=== PATIENT | female | born 1990 | race Caucasian/White ===

== ENCOUNTER → 2019-05-18 | Outpatient (CLI) | payer OTHER | LOC: M LAB 09:07 | PROVIDERS: ATTEND Registered Nurse Maternal Newborn | DX: O36.0131 Maternal care for anti-D [Rh] antibodies, third trimester, fetus 1 (principal); Z3A.33 33 weeks gestation of pregnancy ==

== ENCOUNTER 2019-06-29 20:57 | Inpatient (IN) | payer OTHER ==
[2019-06-29] VITALS (11 sets, daily range): BP systolic 95–133; BP diastolic 60–88
[~2019-06-29] VITALS: Ht 165.1 cm; Wt 84.1 kg
[2019-06-29] MEDS ORDERED: LACTATED RINGER'S 1000 ML IV STA (21:53)
[2019-06-29] MEDS ORDERED: LR 1,000 ML IV SCH (21:53)
[2019-06-29] MEDS ORDERED: FENTANYL 2MCG/ML ROPIVACAINE 0.2% IN 0.9% NACL 100ML IVBAG As Ordered ONE (22:28)
[2019-06-29] MEDS ORDERED: ONDANSETRON 4MG/2ML VIAL IV ONE (22:30)
[2019-06-29 22:33] LABS: HEMATOCRIT 40.9 % (36.0-47.0); HEMOGLOBIN 14.5 g/dl (12.0-15.5); MEAN CORPUSCULAR HEMOGLOBIN 32.7 pg (27.0-33.0); MEAN CORPUSCULAR HGB CONC 35.5 g/dl (32.0-36.5); MEAN CORPUSCULAR VOLUME 92.1 fl (80.0-96.0); PLATELET COUNT, AUTOMATED 160 10^3/uL (150-450); RED BLOOD COUNT 4.44 10^6/uL (4.00-5.40); WHITE BLOOD COUNT 8.7 10^3/uL (4.0-10.0)
[2019-06-29] MEDS ORDERED: NALOXONE INJ 0.4MG/1ML VIAL (J2310 PER 1MG) IV PRN (22:47)
[2019-06-29] MEDS ORDERED: FENTANYL/ROPIVACAINE/NACL BAG 100 ML EPIDURAL SCH (22:47)
[2019-06-29] MEDS ORDERED: EPIDURAL/PCA KEYS XX PRN (22:47)
[2019-06-29] MEDS ORDERED: REFRIGERATOR IV KEYS XX PRN (22:47)
[2019-06-29] MEDS ORDERED: ONDANSETRON 4MG/2ML VIAL IV PRN (22:47)
[2019-06-29] MEDS ORDERED: ePHEDrine SULFATE 25 MG/5 ML(5MG/ML) SYRINGE IV PRN (22:47)
[2019-06-29] MEDS ORDERED: diphenhydrAMINE 50MG/ML VIAL (J1200) IV PRN (22:47)
[2019-06-29] MEDS ORDERED: EPIDURAL COMMENT XX SCH (22:47)
[2019-06-29] MEDS ORDERED: LACTATED RINGER'S 1000 ML IV PRN (22:47)
[2019-06-30] VITALS (21 sets, daily range): BP systolic 94–136; BP diastolic 54–98
[2019-06-30] MEDS ORDERED: OXYTOCIN INJ 10 UNITS/ML VIAL (J2590) As Ordered ONE (02:35)
[2019-06-30 03:30] LABS: CORD GAS ABE A -2.8; CORD GAS ABE V -2.8; CORD GAS HCO3 A 23.9 MEQ/L; CORD GAS HCO3 V 20.8 MEQ/L; CORD GAS O2 SAT A 47.1 %; CORD GAS O2 SAT V 82.3 %; CORD GAS PCO2 A 48.5 mmHg; CORD GAS PCO2 V 33.2 mmHg; CORD GAS PH A 7.31 UNITS; CORD GAS PH V 7.414 UNITS; CORD GAS PO2 A 20.7 mmHg; CORD GAS SBC A 20.9 MEQ/L; CORD GAS SBC V 21.7 MEQ/L; CORD GAS TCO2 A 25.4 MEQ/L; CORD GAS TCO2 V 21.8 MEQ/L
[2019-06-30] MEDS ORDERED: OXYTOCIN DRIP 30 UNITS in IV 1 EA IV SCH ×3 (03:37)
[2019-06-30] MEDS ORDERED: MEASLES,MUMPS,RUBELLA VACCINE INJ (MMR-II) (90707) SC SCH (03:45)
[2019-06-30] MEDS ORDERED: DOCUSATE SODIUM 100 MG CAP PO PRN (03:45)
[2019-06-30] MEDS ORDERED: OXYTOCIN INJ 10 UNITS/ML VIAL (J2590) IV ONE (03:45)
[2019-06-30] MEDS ORDERED: DIBUCAINE 1% OINTMENT 30GM TOP PRN (03:45)
[2019-06-30] MEDS ORDERED: ACETAMINOPHEN 500 MG TAB PO PRN (03:45)
[2019-06-30] MEDS ORDERED: ANUSOL HC CREAM 30GM TOP PRN (03:45)
[2019-06-30] MEDS ORDERED: RHOGAM 300 MCG (1500 IU) INJ (J2790) IM SCH (03:45)
[2019-06-30] MEDS ORDERED: METHYLERGONOVINE MALEATE 0.2 MG TAB PO PRN (03:45)
[2019-06-30] MEDS ORDERED: IBUPROFEN 600 MG TAB PO PRN (03:45)
[2019-06-30] MEDS ORDERED: MOM 30ML SUSPENSION UDC PO PRN (03:45)
[2019-06-30] MEDS ORDERED: ACETAMINOPHEN TAB 650MG DOSE (2X325MG) PO PRN (03:45)
[2019-06-30] MEDS: PRENATAL VITAMINS CHEWABLE TABLET PO SCH (07:50)
[2019-06-30] MEDS: LR 1,000 ML IV SCH ×2 (08:37→11:37)
--- NOTE | 2019-06-30 09:07 | HPE ---
DATE OF ADMISSION: 06/29/2019 28-year-old 2, para 1, last menstrual period (LMP) 09/26/2018, estimated date of confinement (EDC) 07/03/2019 at 39 and 4 weeks of gestation in active labor at term. PAST HISTORY: June 2017 - 40 weeks spontaneous vaginal delivery female 7 pounds 1 ounce, uneventful. Induction of labor etiology unknown. RISK FACTORS: She is Rh negative with antibody isoimmunization anti E2 and anti C of 10. LABS: O negative, HIV negative, hep negative, RPR negative, rubella immune. Varicella immune. Pap normal. Urine negative. Gonorrhea and chlamydia neg. 1-hour glucose 105 and GBS is negative. PHYSICAL EXAMINATION: On examination distressed. Symphysis fundus height is 39, vertex occiput anterior (OA), ballotable 3 cm, moderate intensity. Category 1 strip. Blood pressure 133/88, respirations 20, pulse 98 and temperature 98.7. Urine is not available. The rest examination unremarkable. Normocephalic, atraumatic. Neck full range of motion. Pupils equal and reactive to light. Distal pulses symmetric. No evidence of deep venous thrombosis (DVT), pulmonary embolus (PE) or superficial phlebitis. Chest is clear bilaterally bases. No wheezes or rhonchi. No costovertebral angle (CVA) tenderness. Abdomen is nontender. Four-quadrant bowel sounds are noted. Appropriate symphysis fundus height. She has no rashes, lesions or pruritus. No arthralgia, myalgia. No complaint joint pain. No complaint cough, wheeze, shortness of breath or dyspnea on exertion. No bruising. No bleeding. Neuro complete. No incontinency or frequency. She is presently vomiting because of labor. No endocrine or heat or cold sensitivities. She has no history of abnormal Pap smears socially transmitted disease (STDs). Past medical unremarkable surgically unremarkable. Family history noncontributory. She does not smoke, drink abuse drugs. No domestic violence. Good support system. ALLERGIES: PENICILLIN. She has had evaluation that center regarding Rh negative and the following antibody titers. Consent for vaginal delivery, delivery through the vagina, possible use of forceps or vacuum devices if needed, for maternal or indications. These are the devices that can assist for vaginal delivery when normal pushing efforts cannot achieve delivery on their own or when delivery is needed in emergency for baby's well-being. Medications may be required to induce or augment labor in order achieve vaginal delivery. An episiotomy may be required to help the baby deliver vaginally. You may also require repair of any lacerations or tears of the vagina or vulva that are caused by delivery. In some case emergencies arise that require emergency section. These are only done for medically indicated issues and will be discussed with your provider. section is delivery of the baby through an incision in the abdomen and in some situations it may be safer for the mother and the baby than continuing labor and is only performed when clinically indicated. Risks of vaginal delivery include not limited to bleeding, infection, injury to the vagina pelvic structures, injury to baby, damage to the uterus reaction to anesthesia uterine rupture, risk of hysterectomy for life-threatening bleeding or even . Medications used to induce or augment labor may increase risk of infection, uterine tachysystole, uterine rupture, rate abnormalities, need for emergency section, possible , hysterectomy and hemorrhage. Additional risks of use of forceps or vacuum include scratches, hematomas the head or an intracranial bleed. The patient expressed understanding of the same. All questions were answered. Plans on hydrating the patient, epidural as required and is safe to proceed.
--- NOTE | 2019-06-30 09:09 | IPN ---
DATE OF SERVICE: 06/29/2019 Is 1, para 1, admitted in active labor. She had requested an epidural. It was in place and was working appropriately. Whyte catheter in the bladder draining clear urine. Examination of the patient feels she is about 3 cm posterior, soft, 50%, -3 station, and artificial rupture of membranes (ARM), draining clear liquor. There was just a minimal amount of fluid despite the fact that we tried to elevate the head. There was no fluid behind. Previously, OT to left (dictation cut off) position to the left. Category one strip. Blood pressure is 105/69, respirations were 18, pulse was 81, and she is afebrile. We anticipate safe to proceed. We have left an order for Pitocin should the contractions peter out. The patient and baby tolerating procedure well. KAYE
[2019-06-30] MEDS: IBUPROFEN 800 MG TAB PO PRN ×2 (10:50→18:31)
[2019-07-01 06:29] VITALS: BP 98/52
[2019-07-01 06:59] LABS: HEMATOCRIT 40.6 % (36.0-47.0); HEMOGLOBIN 14.4 g/dl (12.0-15.5); MEAN CORPUSCULAR HEMOGLOBIN 33.7 pg (27.0-33.0); MEAN CORPUSCULAR HGB CONC 35.5 g/dl (32.0-36.5); MEAN CORPUSCULAR VOLUME 95.1 fl (80.0-96.0); PLATELET COUNT, AUTOMATED 141 10^3/uL (150-450); RED BLOOD COUNT 4.27 10^6/uL (4.00-5.40); WHITE BLOOD COUNT 6.5 10^3/uL (4.0-10.0)
--- NOTE | 2019-07-01 08:29 | IPNPDOC ---
Progress Note Date of Service: July 01, 2019 Day#: 1 Progress Note PPD 1 SUBJECT: Georgette is a 29yo [id number] s/p uncomplicated at 39w4d after presenting in active labor, doing well day # 1. She has been ambulating, voiding spontaneously without issue and tolerating regular diet. Breast feeding without issue. Reports lochia is like a normal period. No lightheadedness/dizziness with ambulation, no f/c/n/v/CP/SOB. Baby is being circumcised this morning. OBJECTIVE: VITAL SIGNS: Within normal limits, afebrile. Alert and oriented times three. Abdomen: Fundus firm at U-2. Soft, NTTP. Extremities: no pain with palpation of calves ASSESSMENT: Georgette is a 29yo [id number] s/p uncomplicated at 39w4d after presenting in active labor, doing well day # 1. Vitals within normal limits, afebrile, hemodynamically stable with no evidence of infection. PLAN: 1. Discharge to home today. 2. Tylenol and Motrin for pain. 3. Encourage breast feeding and ambulation. 4. Routine PP visit in 6 weeks in clinic. 5. Discussed return precautions at length. 6. Vaginal rest 6 weeks, no heavy lifting Dr. Shara Sanchez MD VS, I&O, [facility] Vital Signs/I&O Vital Signs Date Time Temp Pulse Resp B/P (MAP) Pulse Ox O2 Delivery O2 Flow Rate FiO2 07/01/19 06:29 97.7 59 19 98/52 (67) 06/30/19 18:06 96 Room Air I&O- Last 24 Hours up to 6 AM 07/01/19 06:00 Intake Total 500 ml Balance 500 ml Laboratory Data 24H LABS Laboratory Tests 2 07/01/19 06:26: Nucleated Red Blood Cells % (auto) 0.0 CBC/BMP Laboratory Tests 07/01/19 06:26 Shara Sanchez MD July 01, 2019 08:29
[2019-07-01] MEDS ORDERED: ACET-683 PO (08:30)
[2019-07-01] MEDS ORDERED: DOCU100C16 PO (08:30)
--- NOTE | 2019-07-01 08:33 | DS.PDOC ---
Discharge Summary General Date of Admission June 29, 2019 at 21:39 Date of Discharge July 01, 2019 Discharge Summary PROCEDURES PERFORMED DURING STAY: spontaneous vaginal delivery ADMITTING DIAGNOSES: 1. active labor at 39w4d DISCHARGE DIAGNOSES: 1. active labor at 39w4d, delivered COMPLICATIONS/CHIEF COMPLAINT: Term . HISTORY OF PRESENT ILLNESS/HOSPITAL COURSE: Georgette is a 29yo [id number] s/p uncomplicated at 39w4d after presenting in active labor, doing well day # 1. course benign. Vitals within normal limits, afebrile, hemodynamically stable with no evidence of infection. DISCHARGE MEDICATIONS: Please see below. ALLERGIES: Please see below. PHYSICAL EXAMINATION ON DISCHARGE: VITAL SIGNS: Within normal limits, afebrile. Alert and oriented times three. Abdomen: Fundus firm at U-2. Soft, NTTP. Extremities: no pain with palpation of calves LABORATORY DATA: Please see below. DIET: regular DISPOSITION: home DISCHARGE PLAN/INSTRUCTIONS: 1. Discharge to home today. 2. Tylenol and Motrin for pain. 3. Encourage breast feeding and ambulation. 4. Routine PP visit in 6 weeks in clinic. 5. Discussed return precautions at length. 6. Vaginal rest 6 weeks, no heavy lifting DISCHARGE CONDITION: Stable TIME SPENT ON DISCHARGE: Greater than [address] Shara Sanchez MD Vital Signs/I&Os Vital Signs Date Time Temp Pulse Resp B/P (MAP) Pulse Ox O2 Delivery O2 Flow Rate FiO2 07/01/19 06:29 97.7 59 19 98/52 (67) 06/30/19 18:06 96 Room Air I&O- Last 24 Hours up to 6 AM0 07/01/19 06:00 Intake Total 500 ml Balance 500 ml Laboratory Data Labs 24H Laboratory Tests 2 07/01/19 06:26: Nucleated Red Blood Cells % (auto) 0.0 CBC/BMP Laboratory Tests 07/01/19 06:26 Discharge Medications Scheduled PRN Acetaminophen (Acetaminophen) 500 Mg Tablet, 1,000 MG PO Q6HP PRN for PAIN LEVEL 6-10 Docusate Sodium (Docusate Sodium) 100 Mg Capsule, 100 MG PO QHSP PRN for CONSTIPATION Allergies Coded Allergies: Penicillins (Verified Allergy, Unknown, 06/29/19) Shara Sanchez MD July 01, 2019 08:33
[2019-07-01] MEDS: IBUPROFEN 800 MG TAB PO PRN (09:07)
[2019-07-01] MEDS: PRENATAL VITAMINS CHEWABLE TABLET PO SCH (09:07)
--- NOTE | 2019-07-01 17:20 | DN ---
DATE: 07/01/2019 A 29-year-old 2, para 1 admitted in active labor at 39 weeks of gestation. With epidural in place had a spontaneous vaginal delivery, a live- male , 7 pounds 3 ounces, 3260 grams, scores of 9 and 9 at one and five minutes, respectively. Arterial pH 7.31, base excess -2.8, venous pH 7.41, base excess -2.8. Placenta delivered spontaneously thereafter. Three-vessel cord, membranes, and tissues intact. She had a small little first-degree on the left side wall of the fourchette of vagina, which was oversewn with a 3-[address] Anterior, posterior, and lateral ortiz were complete. Sphincter was tight. The uterus contracted well down on Pitocin. The patient baby tolerating procedure well.
--- NOTE | 2019-07-02 04:42 | IPN ---
DATE: 06/30/2019 This patient requested circumcision of her male after discussing risks and benefits of circumcision, the medical and nonmedical indications, penile block, and aftercare. Expressed understanding of penile block, aftercare, and bleeding. Signed the consent form. All questions were answered. 20-minute discussion. Await clearance by the [employer] investigator.
== END 2019-07-01 13:10 | disposition home or self-care (01) | DRG 807 ==
LOC: M LDO 20:57 → M LDI 21:39 → M OBS 06-30 05:49
PROVIDERS: ADMIT Obstetrics & Gynecology; ATTEND Obstetrics & Gynecology
PROC: 10907ZC Drainage of Amniotic Fluid, Therapeutic from Products of Conception, Via Natural or Artificial Opening (ICD-10-PCS; 2019-06-29)
PROC: 10E0XZZ Delivery of Products of Conception, External Approach (ICD-10-PCS; principal; 2019-06-30)
PROC: 0HQ9XZZ Repair Perineum Skin, External Approach (ICD-10-PCS; 2019-06-30)
DX: O70.0 First degree perineal laceration during delivery (principal); Z37.0 Single live birth; Z3A.39 39 weeks gestation of pregnancy

== ENCOUNTER → 2019-12-25 | Outpatient (CLI) | payer OTHER ==
[~2019-12-25] MED LIST: ACET-683 PO; DOCU100C16 PO; GASTROGRAFIN SOLUTION 30ML (Q9963) As Ordered ONE; ISOVUE-370 76% 100ML VIAL As Ordered ONE
--- NOTE | 2019-12-25 17:48 | REP ---
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 COMPARISON: Chest 11/26/2019 from outside facility TECHNIQUE: Bolus 100 mL Isovue 370 scanning through the chest with coronal and sagittal reconstructions. FINDINGS: The lung cleary are well inflated. There are surgical clips about the right hilum prior upper lobectomy. Irregular curvilinear density in images 40 7-52 suggest scarring anteriorly in the right mid chest. I do not see pleural thickening, calcified pleural plaque, pleural based mass, parenchymal mass or pulmonary nodules. No effusion. Heart is not enlarged. There is no mediastinal or hilar adenopathy. The aorta is without aneurysm or dissection. No axillary or supraclavicular masses. Tracheal airway intact. The main, right and left pulmonary arteries and visible lobar arteries are without filling defects. Bone windows show visualized vertebral bodies and posterior elements, ribs, sternum, manubrium, clavicles and shoulders all grossly intact without focal lesion. Please see abdominal CT for discussion of upper abdominal findings. IMPRESSION: 1. Postoperative changes in the right perihilar region and some curvilinear scarring right upper lung zone minimal. No focal nodule, mass, infiltrate, adenopathy or other acute finding. <Electronically signed by Mark Walker > 12/25/19 [id number]
--- NOTE | 2019-12-25 18:04 | REP ---
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 COMPARISON: None. TECHNIQUE: Rolled Gastrografin mixture per our bowel contrast protocol followed by bolus of 100 mL Isovue 370 scanning through the abdomen and pelvis with coronal and sagittal reconstructions. Delayed images through the abdomen provided. FINDINGS: CT abdomen: The lung bases were clear. Heart is not enlarged. There is no pericardial thickening or effusion. Stomach retained food without mass or wall thickening. There is no hepatomegaly, focal hepatic lesion, biliary dilatation or adjacent ascites. Spleen measured 12.9 x 10.5 x 4.7 cm giving splenic index of 636. Is mildly enlarged (normal less than 480). No focal splenic lesion. Adrenal glands are normal the kidneys are symmetric in enhancement without mass, cyst, stone or hydronephrosis no perinephric fluid pancreas without mass or ductal dilatation no peripancreatic other retroperitoneal or mesenteric lymphadenopathy. Small bowel loops contrast or fluid filled and unremarkable in their appearance there is stool and gas scattered in the colon without colitis or diverticulitis and no stricture or mass identified appendix is seen and normal. 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 Visualized lower ribs intact. CT pelvis: The bony sacrum, pelvis, hips and pubic bones were unremarkable. Small bowel loops in the deep pelvis are contrast filled to the distal ileum and then and unremarkable I do not see contrast reaching the cecum the appendix is seen and normal cecum show no inflammatory changes adjacent. Distal left colon sigmoid and rectum are without acute findings uterus is retroverted and there is no evidence of a pelvic mass or pelvic free fluid. No pelvic or inguinal adenopathy. No inguinal or ventral hernia. IMPRESSION: 1. Some mild splenomegaly with splenic index of 636 (normal range up to 480) no focal splenic or hepatic lesion. No abdominopelvic ascites, mass or adenopathy. 2. Colon and small bowel loops grossly unremarkable the appendix seen and normal. Stomach unremarkable. Adrenal glands kidneys gallbladder and pancreas also unremarkable. Nothing acute. 3. No focal bone lesion. <Electronically signed by Mark Walker > 12/25/19 1947
== END ==
LOC: M RAD 14:59
PROVIDERS: ATTEND Internal Medicine Pulmonary Disease
DX: C34.90 Malignant neoplasm of unspecified part of unspecified bronchus or lung (principal)

== ENCOUNTER → 2020-08-27 | Outpatient (CLI) | payer OTHER ==
[~2020-08-27] MED LIST changes: -GASTROGRAFIN SOLUTION 30ML (Q9963) As Ordered ONE; -ISOVUE-370 76% 100ML VIAL As Ordered ONE
--- NOTE | 2020-08-27 10:38 | REP ---
INDICATION: LEFT 5TH TOE INJURY T/O FX COMPARISON: None. TECHNIQUE: AP, lateral, bilateral oblique views left 5th toe. FINDINGS: Fracture along the distal aspect of the proximal phalanx. IMPRESSION: Fracture 5th toe proximal phalanx. <Electronically signed by Benito Bruce > 08/27/20 [id number]
== END ==
LOC: M RAD 10:10
PROVIDERS: ATTEND Physician Assistant Medical
DX: S92.512A Displaced fracture of proximal phalanx of left lesser toe(s), initial encounter for closed fracture (principal)

== ENCOUNTER → 2020-09-01 | Outpatient (CLI) | payer OTHER ==
[~2020-09-01] MED LIST changes: +METHACHOLINE KIT (J7674) INH ONE
--- NOTE | 2020-09-01 15:43 | PFTRPT ---
Site: [facility], [address] [place], [address] ID: [id number] Name: MEGHNA CHEN Visit Date: 09/01/2020 Second ID: [id number] Referring Doctor: Brenda An MD Reviewing Doctor: Scott Rivera MD Senior It Specialist: Trey WEIR RRT Age: 30 : 1990 Sex: Female Race: Height: 64.00 Inches Weight: 151.00 Lbs BSA: 1.74 Order IDs: [id number] Requested Test(s): <RESP-PFT.METH CHAL> Diagnosis: R94.2 of albuterol for post bronchodilator. Review Status: Not Reviewed Pre-Bronch Post-Bronch Pred Actual %Pred Actual %Chng SPIROMETRY FVC (L) 3.77 3.68 97 3.69 FEV1 (L) 3.17 2.50 78 2.67 6 FEV1/FVC (%) 84 68 80 72 6 FEF 25% (L/sec) 5.67 3.04 53 3.82 25 FEF 50% (L/sec) 4.46 2.05 45 2.49 21 FEF 75% (L/sec) 1.87 0.98 52 1.09 11 FEF 25-75% (L/sec) 3.42 1.80 52 2.16 19 FEF Max (L/sec) 7.01 5.48 78 4.18 -23 FIVC (L) 3.82 3.23 -15 FIF 50% (L/sec) 4.02 5.34 132 2.99 -44 FIF Max (L/sec) 5.47 3.32 -39 Expiratory Time (sec) 6.81 7.38 8 Back Extrap Vol (L) 0.04 0.10 157 Time To FEFmax (sec) 0.052 0.146 182
== END ==
LOC: M CARPUL 14:39
PROVIDERS: ATTEND Internal Medicine Pulmonary Disease
DX: R94.2 Abnormal results of pulmonary function studies (principal)
CPT/HCPCS: 94070; J7674